=== PATIENT | female | born 1975 | race Hispanic/Latino ===

== ENCOUNTER 2017-02-14 11:00 | Outpatient (CLI) | payer OTHER ==
[2017-02-14 11:56] LABS: INR-International Normal Ratio 0.9; PTT 24.7 SEC (22.9-36.1); Prothrombin Time 12.6 SEC (12.0-14.7)
[2017-02-14 12:00] LABS: #Basophils 0.1 thou/uL (0.0-0.2); #Eosinphils 0.7 thou/uL (0.0-0.7); #Lymphocytes 2.7 thou/uL (1.20-3.40); #Monocytes 0.6 thou/uL (0.11-0.59); #Neutrophils 6.4 thou/uL (1.40-6.50); %Basophils 0.9 % (0.0-1.0); %Eosinophils 6.5 % (0.0-10.0); %Lymphocytes 26.2 % (21.0-51.0); %Monocytes 5.3 % (0.0-10.0); %Neutrophils 61.2 % (42.0-75.0); Hemoglobin 12.5 g/dL (12.0-16.0); Mean Corpuscular HGB CONC 32.7 g/dL (32.0-36.0); Mean Corpuscular Hemoglobin 29.1 pg (27.0-31.0); Mean Corpuscular Volume 89.1 fl (81.0-99.0); Mean Platelet Volume 8.3 fL (7.4-10.4); Platelet Count 316 thou/uL (130-400); RBC Distribution Width 13.7 % (11.5-14.5); Red Blood Cell (RBC) Count 4.28 mill/uL (4.20-5.40); White Blood Cell (WBC) Count 10.4 thou/uL (4.8-10.8)
[2017-02-14 12:06] LABS: ALT (SGPT) 17 U/L (8-55); AST (SGOT) 17 U/L (5-34); Albumin 4.3 g/dL (3.5-5.0); Alkaline Phosphatase 75 U/L (40-150); Anion Gap 15 mmol/L (10-20); BUN (Urea Nitrogen) 6 mg/dL (7.0-18.7); Bilirubin, Total Less than 0.3 mg/dL (0.2-1.2); Calc. Creatinine Clearance 0 mL/min (70-130); Calcium 9.2 mg/dL (7.8-10.44); Carbon Dioxide 23 mmol/L (22-29); Chloride 105 mmol/L (98-107); Estimated GFR-MDRD Greater than 90; Globulin 2.9 g/dL (2.4-3.5); Glucose 87 mg/dL (70-105); Potassium 4.2 mmol/L (3.5-5.1); Protein, Total 7.2 g/dL (6.0-8.3); Sodium 139 mmol/L (136-145)
[2017-02-14 12:30] LABS: Free T4 (Free Thyroxine) 0.93 ng/dL (0.70-1.48); Thyroid Stimulating Hormone 0.9602 uIU/mL (0.35-4.94)
== END 2017-02-14 11:01 | disposition home or self-care (01) ==
LOC: MADLABBHPM 11:00
PROVIDERS: ATTEND Family Medicine
DX: Z01.419 Encounter for gynecological examination (general) (routine) without abnormal findings (principal)
CPT/HCPCS: 36415; 80053; 84439; 84443; 85025; 85610; 85730; 87624; 88142; G0123

== ENCOUNTER 2017-02-20 07:46 | Outpatient (CLI) | payer OTHER ==
--- NOTE | 2017-02-20 10:22 | ULT ---
PELVIC SONOGRAM TRANSABDOMINAL AND TRANSVAGINAL IMAGING: History: Irregular menses. Heavy bleeding. FINDINGS: Urinary bladder is incompletely distended. Uterus has a very heterogeneous echo texture measuring up to 11.5 cm in length. An anterior slightly heterogeneous mass measures up to 3.7 x 3.7 cm greatest diameter. Endometrium is 1.9 cm in thickness. At the right adnexa, a 3.3 cm hypoechoic structure has the appearance of the ovary. Left ovary is no t well visualized. Color flow was seen within the right adnexa although spectral doppler flow was no t well documented. No free fluid is visible. IMPRESSION: 1. Moderate fibroid involvement of the uterus. 2. Poor visualization of the ovaries. POS: [facility]
== END 2017-02-20 07:47 | disposition home or self-care (01) ==
LOC: MADULT 07:46
PROVIDERS: ATTEND Family Medicine
DX: N92.1 Excessive and frequent menstruation with irregular cycle (principal); D25.9 Leiomyoma of uterus, unspecified
CPT/HCPCS: 76856

== ENCOUNTER 2020-05-24 13:14 | Outpatient (CLI) | payer OTHER ==
--- NOTE | 2020-05-24 13:49 | RAD ---
XR Chest Pa Lat STANDARD History: Cough. Positive Covid Comparison: None. Findings: Multifocal airspace opacities throughout the lungs. No pneumothorax. No effusion. Curvilinear radiopacity projects in the right hemithorax likely extrinsic to the patient. Impression: Commonly report imaging findings of Covid-19 pneumonia.
== END 2020-05-24 13:15 | disposition home or self-care (01) ==
LOC: MADRAD 13:14
PROVIDERS: ATTEND Family Medicine
DX: U07.1 COVID-19 (principal); J45.909 Unspecified asthma, uncomplicated
CPT/HCPCS: 71046

== ENCOUNTER 2020-05-25 15:23 | Emergency (ER) | payer OTHER ==
[~2020-05-25 15:23] MED LIST: Sodium Chloride 0.9% 1,000 ML BAG ONE
[2020-05-25] MEDS ORDERED: Ibuprofen 800 MG TAB ONE (16:37)
[2020-05-25] MEDS ORDERED: Acetaminophen 500 MG TAB ONE (16:37)
[2020-05-25] MEDS ORDERED: Dexamethasone 10 MG/ML VIAL ONE (16:37)
[2020-05-25 17:16] LABS: #Basophils 0.1 thou/uL (0.0-0.2); #Eosinphils 0.2 thou/uL (0.0-0.7); #Lymphocytes 3.5 thou/uL (1.20-3.40); #Monocytes 0.6 thou/uL (0.11-0.59); #Neutrophils 4.1 thou/uL (1.40-6.50); %Lymphocytes 40.9 % (21.0-51.0); %Monocytes 6.8 % (0.0-10.0); %Neutrophils 48.3 % (42.0-75.0); Hemoglobin 12.3 g/dL (12.0-16.0); Mean Corpuscular HGB CONC 31.8 g/dL (32.0-36.0); Mean Corpuscular Hemoglobin 27.3 pg (27.0-31.0); Mean Corpuscular Volume 85.7 fL (78.0-98.0); Mean Platelet Volume 6.4 fL (7.4-10.4); Platelet Count 506 thou/uL (130-400); Red Blood Cell (RBC) Count 4.51 mill/uL (4.20-5.40); White Blood Cell (WBC) Count 8.4 thou/uL (4.8-10.8)
[2020-05-25 17:31] LABS: BHCG - Serum Negative (NEGATIVE); Pregs Control Background? CLEAR/WHITE (CLR/WHITE); Pregs Control Bar Appear? YES (CONTROL BAR)
[2020-05-25 17:36] LABS: ALT (SGPT) 38 U/L (8-55); AST (SGOT) 21 U/L (5-34); Alkaline Phosphatase 73 U/L (40-110); Anion Gap 15 mmol/L (10-20); BUN (Urea Nitrogen) 8 mg/dL (7.0-18.7); Bilirubin, Total 0.2 mg/dL (0.2-1.2); Calc. Creatinine Clearance 0 mL/min (70-130); Calcium 9.5 mg/dL (7.8-10.44); Carbon Dioxide 23 mmol/L (22-29); Chloride 106 mmol/L (98-107); Estimated GFR-MDRD Greater than 90; Globulin 3.5 g/dL (2.4-3.5); Glucose 101 mg/dL (70-105); Potassium 3.3 mmol/L (3.5-5.1); Protein, Total 7.5 g/dL (6.0-8.3); Sodium 141 mmol/L (136-145)
== END 2020-05-25 18:34 | disposition home or self-care (01) ==
LOC: MADERS 15:23
DX: U07.1 COVID-19 (principal); F32.9 Major depressive disorder, single episode, unspecified; J45.909 Unspecified asthma, uncomplicated
CPT/HCPCS: 80053; 83605; 84703; 85025; 85379; 86140; 96374; J1100; J7050

== ENCOUNTER 2020-05-26 23:14 | Emergency (ER) | payer OTHER ==
[2020-05-27 00:41] LABS: #Monocytes 0.8 thou/uL (0.11-0.59); #Neutrophils 13.7 thou/uL (1.40-6.50); %Basophils 0.2 % (0.0-1.0); %Lymphocytes 12.2 % (21.0-51.0); %Monocytes 4.6 % (0.0-10.0); Hemoglobin 11.5 g/dL (12.0-16.0); Mean Corpuscular HGB CONC 31.7 g/dL (32.0-36.0); Mean Corpuscular Hemoglobin 27.4 pg (27.0-31.0); Mean Corpuscular Volume 86.5 fL (78.0-98.0); Mean Platelet Volume 6.2 fL (7.4-10.4); Platelet Count 524 thou/uL (130-400); RBC Distribution Width 13.4 % (11.5-14.5); Red Blood Cell (RBC) Count 4.19 mill/uL (4.20-5.40); White Blood Cell (WBC) Count 16.5 thou/uL (4.8-10.8)
[2020-05-27 00:54] LABS: ALT (SGPT) 43 U/L (8-55); AST (SGOT) 24 U/L (5-34); Albumin 4.1 g/dL (3.5-5.0); Alkaline Phosphatase 72 U/L (40-110); Anion Gap 19 mmol/L (10-20); BUN (Urea Nitrogen) 6 mg/dL (7.0-18.7); Bilirubin, Total Less than 0.2 mg/dL (0.2-1.2); Calc. Creatinine Clearance 0 mL/min (70-130); Calcium 9.1 mg/dL (7.8-10.44); Carbon Dioxide 17 mmol/L (22-29); Chloride 109 mmol/L (98-107); Estimated GFR-MDRD Greater than 90; Globulin 3.1 g/dL (2.4-3.5); Glucose 204 mg/dL (70-105); Lipase 20 U/L (8-78); Potassium 3.7 mmol/L (3.5-5.1); Protein, Total 7.2 g/dL (6.0-8.3); Sodium 141 mmol/L (136-145)
--- NOTE | 2020-05-27 07:44 | RAD ---
EXAM: Chest 2 views: HISTORY: Chest pain and shortness of breath COMPARISON: 05/24/2020 FINDINGS: There is a normal-sized cardiomediastinal silhouette. Increased interstitial lung markings are prese nt. There is no evidence of consolidation, mass, or pleural effusion. The bones are unremarkable. IMPRESSION: No evidence of acute cardiopulmonary disease
== END 2020-05-27 01:38 | disposition home or self-care (01) ==
LOC: MADERS 23:14
DX: R07.9 Chest pain, unspecified (principal); R06.00 Dyspnea, unspecified; J45.909 Unspecified asthma, uncomplicated; F32.9 Major depressive disorder, single episode, unspecified; F41.0 Panic disorder [episodic paroxysmal anxiety]
CPT/HCPCS: 36415; 71046; 80053; 83690; 83880; 84484; 85025; 85379; 93005

== ENCOUNTER 2020-06-08 10:46 | Outpatient (CLI) | payer OTHER ==
--- NOTE | 2020-06-08 11:40 | RAD ---
2 view chest: [06/08/2020] Comparison:05/27/2020 and 05/24/2020 HISTORY: Covid 19 FINDINGS: Stable increased linear interstitial densities with pulmonary hyperinflation. No pneumothor ax or pleural fluid. No focal consolidation or alveolar edema. IMPRESSION: Stable appearance of the chest when compared to the most recent prior study. No focal con solidation or alveolar edema. Stable nonspecific increased linear interstitial density. Of note, interstitial opacities have improved when compared to the 05/24/2020 exam.
== END 2020-06-08 10:47 | disposition home or self-care (01) ==
LOC: MADRAD 10:46
PROVIDERS: ATTEND Family Medicine
DX: U07.1 COVID-19 (principal); R91.8 Other nonspecific abnormal finding of lung field
CPT/HCPCS: 71046

== ENCOUNTER 2022-05-03 16:47 | Emergency (ER) | payer BC ==
[2022-05-03] MEDS ORDERED: Ondansetron ODT 4 MG TAB ONE (18:17)
[2022-05-03] MEDS ORDERED: Ibuprofen 800 MG TAB ONE (18:17)
[2022-05-03 19:19] LABS: SARS-CoV-2 NAA Rapid Test DETECTED (NotDetected)
== END 2022-05-03 18:30 | disposition home or self-care (01) ==
LOC: MADERS 16:47
DX: U07.1 COVID-19 (principal); J45.909 Unspecified asthma, uncomplicated; Z79.899 Other long term (current) drug therapy
CPT/HCPCS: 99283; Q0162; U0002

== ENCOUNTER 2022-06-01 17:27 | Outpatient (CLI) | payer BC ==
[2022-06-02 00:16] LABS: HIV (1/2) Antibody/Antigen Non-Reactive (NonReactive); HIV 1/2 INDEX 0.22 S/CO (<1.00); Vitamin D, 25 Hydroxy 12.5 ng/ml (> 30.0)
== END 2022-06-01 17:28 | disposition home or self-care (01) ==
LOC: MADLABSP 17:27
PROVIDERS: ATTEND Family Medicine
DX: Z01.419 Encounter for gynecological examination (general) (routine) without abnormal findings (principal); Z11.4 Encounter for screening for human immunodeficiency virus [HIV]
CPT/HCPCS: 36415; 82306; 87389; 87624; 88175

== ENCOUNTER 2023-01-17 11:47 | Emergency (ER) | payer BC, SELFPAY ==
[2023-01-17] MEDS ORDERED: Lidocaine 4% Patch ONE (12:27)
[2023-01-17] MEDS ORDERED: Ibuprofen 800 MG TAB ONE (12:27)
== END 2023-01-17 12:38 | disposition home or self-care (01) ==
LOC: MADERS 11:47
DX: S16.1XXA Strain of muscle, fascia and tendon at neck level, initial encounter (principal); X50.0XXA Overexertion from strenuous movement or load, initial encounter
CPT/HCPCS: 99283

== ENCOUNTER 2023-11-26 13:55 | Outpatient (CLI) | payer OTHER | END 2023-11-26 13:56 | disposition home or self-care (01) | LOC: MADRAD 13:55 | PROVIDERS: ATTEND Family Medicine | DX: S46.919A Strain of unspecified muscle, fascia and tendon at shoulder and upper arm level, unspecified arm, initial encounter (principal); M19.012 Primary osteoarthritis, left shoulder ==